=== PATIENT | male | born 1980 | race Caucasian/White ===

== ENCOUNTER 2017-11-20 14:37 | Emergency (ER) | payer SELFPAY ==
[2017-11-20] MEDS ORDERED: Lidocaine 1% w/Epinephrine 1:100K 20 ML VIAL ONE ×2 (15:22→16:09)
[2017-11-20] MEDS ORDERED: Bacitracin Zinc 1 Packet ONE (18:16)
== END 2017-11-20 18:39 | disposition home or self-care (01) ==
LOC: ERS 14:37
DX: S01.81XA Laceration without foreign body of other part of head, initial encounter (principal); S01.311A Laceration without foreign body of right ear, initial encounter; F17.210 Nicotine dependence, cigarettes, uncomplicated; W01.198A Fall on same level from slipping, tripping and stumbling with subsequent striking against other object, initial encounter
CPT/HCPCS: 12011; 12055; J2001

== ENCOUNTER 2017-11-27 14:01 | Emergency (ER) | payer SELFPAY ==
[2017-11-27] MEDS ORDERED: Bacitracin Zinc 1 Packet ONE (15:34)
== END 2017-11-27 15:40 | disposition home or self-care (01) ==
LOC: ERS 14:01
DX: S01.81XD Laceration without foreign body of other part of head, subsequent encounter (principal); F17.210 Nicotine dependence, cigarettes, uncomplicated; X58.XXXD Exposure to other specified factors, subsequent encounter

== ENCOUNTER 2018-01-29 16:19 | Inpatient (IN) | payer SELFPAY ==
[2018-01-29] MEDS ORDERED: levETIRAcetam In NaCl (Iso-Os) 1,000 MG in Premix Bag 1 BAG IVPB SCH (17:00)
[2018-01-29 20:02] VITALS: BMI 19.5
[2018-01-29] MEDS ORDERED: Ondansetron ODT 4 MG TAB PO PRN (21:45)
[2018-01-29] MEDS ORDERED: Mag-Al 1200 mg/1200 mg/30 ML UDCUP PO PRN (21:45)
[2018-01-29] MEDS ORDERED: Ondansetron HCl/PF 4 MG/2 ML Vial IVP PRN (21:45)
[2018-01-29] MEDS ORDERED: Calcium Carbonate 500 MG ChewTAB PO PRN (21:45)
--- NOTE | 2018-01-29 22:08 | HP ---
PRIMARY CARE PHYSICIAN: None. CHIEF COMPLAINT: Seizures. HISTORY OF PRESENT ILLNESS: Patient is a 37-year-old male with a spinal tumor diagnosed in the emergency room setting 2 years ago, presented to the emergency room with above complaints. Over the last 2 months, patient has several episodes of seizures which are short lasting. He loses his consciousness and becomes stiff. At times, he bites his tongue. He never had incontinence. He then has confusion after the episodes. The duration of each episode is variable. He did not seek any medical attention. This morning, he had several episodes of seizures for which EMS was called. He also has difficulty with ambulation per patient report. Two years ago, he was seen in the emergency room and had imaging of his spine. He was told that he has some spinal tumor. He never followed with anyone regarding this. He denies any headache, double vision, blurring of vision, facial asymmetry, weakness, numbness of any of his extremities. He received 1000 mg of Dilantin, 2 mg Ativan with IV fluids at [facility] and was transferred to this facility. He received 1000 mg of Keppra here. PAST MEDICAL HISTORY: Questionable spinal tumor diagnosed 2 years ago on the imaging done in the emergency room. PAST SURGICAL HISTORY: Left knee surgery for patellar fracture when he was 21. ALLERGIES: No known drug allergies. CURRENT HOME MEDICATIONS: Reviewed with the patient and none. SOCIAL HISTORY: Smokes up to 1 pack a day on daily basis. No alcohol use. He abuses cannabis. FAMILY HISTORY: Cancer runs in his family. He is unable to provide details. REVIEW OF SYSTEMS: The following complete review of systems was negative, unless otherwise mentioned in the HPI or below: Constitutional: Weight loss or gain, ability to conduct usual activities. Skin: Rash, itching. Eyes: Double vision, pain. ENT/Mouth: Nose bleeding, neck stiffness, pain, tenderness. Cardiovascular: Palpitations, dyspnea on exertion, orthopnea. Respiratory: Shortness of breath, wheezing, cough, hemoptysis, fever or night sweats. Gastrointestinal: Poor appetite, abdominal pain, heartburn, nausea, vomiting, constipation, or diarrhea. Genitourinary: Urgency, frequency, dysuria, nocturia. Musculoskeletal: Pain, swelling. Neurologic/Psychiatric: Anxiety, depression. Allergy/Immunologic: Skin rash, bleeding tendency. PHYSICAL EXAMINATION: VITAL SIGNS: Temperature 97.5, respirations 20, pulse rate of 68, blood pressure 120/80, O2 saturation 95% on room air. GENERAL: A 37-year-old male in no apparent distress. HEENT: Head is atraumatic, normocephalic, Sclerae are anicteric. Moist mucous membrane, no oral lesion. NECK: Supple, no JVD, no carotid bruit. LUNGS: Clear to auscultation bilaterally, no wheezing, rales or rhonchi. HEART: S1, S2 present. Regular rate and rhythm. No murmur, rubs, or gallops appreciated. ABDOMEN: Soft, nontender, bowel sounds present. EXTREMITIES: No edema or calf tenderness. NEUROLOGIC: Grossly nonfocal, moves all four extremities. Cranial nerves 2-12 were normal on exam. Power was 5/5 in all the extremities. PSYCHIATRY: Alert, awake, oriented x3. SKIN: Warm and dry. LYMPH NODES: No palpable lymph nodes in the neck. PERIPHERAL VASCULAR: Radial pulses palpable bilaterally. MUSCULOSKELETAL: No joint swelling or tenderness. LABORATORY DATA AND IMAGING DATA: 1. Urine drug screen positive for cannabinoid and barbiturates. Urinalysis was negative. BMP was normal range. Sodium 142, potassium 3.5. 2. CBC showed WBC 8.5 with hemoglobin 12.6, hematocrit 36.9 and platelet [address] 3. CT scan of the brain by my review was negative for acute findings. IMPRESSION: 1. Recurrent seizures of 2 months' duration. 2. Questionable spinal tumor. 3. Cannabis abuse. 4. Tobacco dependence. 5. Mild normochromic normocytic anemia. PLAN: The patient will be monitored in the stroke unit. Neurology will be consulted. We will continue Keppra. We will check Dilantin level in a.m. Start oral Dilantin. Walking program will be consulted. Seizure precautions. IV fluids. He was advised to follow up with PCP for further work up on ?spinal tumor. Plan of care was discussed with the patient and the family at the bedside. They stated understanding. Tobacco and cannabis cessation was emphasized. MTDD
[2018-01-29] MEDS: Sodium Chloride 0.9% 1,000 ML IV SCH (23:24)
[2018-01-30] MEDS ORDERED: Sodium Chloride 0.9% 500 ML IVPB SCH (00:30)
[2018-01-30] MEDS ORDERED: Sodium Chloride 0.9% 250 ML 250 ML IVPB SCH (02:00)
[2018-01-30] MEDS: Sodium Chloride 0.9% 1,000 ML IV SCH ×2 (05:45→13:29)
[2018-01-30] MEDS: Senokot 8.6 MG TAB PO PRN ×2 (09:43→22:20)
--- NOTE | 2018-01-30 11:14 | PDOC.PN ---
- Subjective Encounter Start Date: 01/30/18 Encounter Start Time: 08:00 Patient seen and examined for seizure. No new seizure. No new focal deficits. No overnight events - Objective Resuscitation Status: Resuscitation Status FULL:Full Resuscitation MAR Reviewed: Yes Vital Signs & Weight: Vital Signs (12 hours) Temp Pulse Resp BP Pulse Ox 01/30/18 08:00 98.1 F 62 16 97 01/30/18 07:49 98.1 F 62 16 88/53 L 97 01/30/18 04:00 98.4 F 54 L 16 80/36 L 98 01/30/18 01:25 84/47 L 01/30/18 00:00 98.5 F 51 L 16 75/38 L 100 Weight Weight 136 lb 8 oz I&O: 01/29/18 01/30/18 01/31/18 06:59 06:59 06:59 Intake Total 1304 480 Balance 1304 480 Phys Exam - Physical Examination Constitutional: NAD Respiratory: no wheezing, no rhonchi Cardiovascular: RRR, no rub Gastrointestinal: soft, non-tender, positive bowel sounds Musculoskeletal: no edema Neurological: moves all 4 limbs Dx/Plan - Plan DVT proph w/SCDs IMPRESSION: 1. Recurrent seizures. 2. ?spinal tumor. 3. Cannabis abuse. 4. Tobacco dependence. 5. Anemia. PLAN: Cont Dilantin 100 mg PO TID Cont IV Keppra Await Neuro input Seizure precautions Cont to monitor Ativan PRN for seizure. Review of Systems - Review of Systems Respiratory: negative: Cough, Dry, Shortness of Breath, Hemoptysis, SOB with Excertion, Pleuritic Pain, Sputum, Wheezing Cardiovascular: negative: chest pain, palpitations, orthopnea, paroxysmal nocturnal dyspnea, edema, light headedness, other - Medications/Allergies Allergies/Adverse Reactions: Allergies Allergy/AdvReac Type Severity Reaction Status Date / Time No Known Allergies Allergy Verified 01/30/18 00:57 Medications: Current Medications Acetaminophen (Tylenol) 650 mg PO Q4H PRN PRN Reason: Headache/Fever or Pain Al Hydroxide/Mg Hydroxide (Maalox) 30 ml PO Q6H PRN PRN Reason: Heartburn or Indigestion Calcium Carbonate (Tums) 1,000 mg PO Q4H PRN PRN Reason: Heartburn or Indigestion Levetiracetam 500 mg/ Device 100 mls @ 200 mls/hr IVPB BID [facility] Last Admin: 01/30/18 09:32 Dose: 100 mls Sodium Chloride (Normal Saline 0.9%) 1,000 mls @ 150 mls/hr IV .Q6H40M [facility] Last Admin: 01/30/18 05:45 Dose: 1,000 mls Ondansetron HCl (Zofran Odt) 4 mg PO Q6H PRN PRN Reason: Nausea/Vomiting Ondansetron HCl (Zofran) 4 mg IVP Q6H PRN PRN Reason: Nausea/Vomiting Phenytoin Sodium (Dilantin Er) 100 mg PO TID [facility] Last Admin: 01/30/18 09:33 Dose: 100 mg Senna (Senokot) 2 tab PO HSPRN PRN PRN Reason: Constipation Last Admin: 01/30/18 09:43 Dose: 2 tab Sodium Chloride (Flush - Normal Saline) 10 ml IVF Q12HR [facility] Last Admin: 01/30/18 09:33 Dose: Not Given Sodium Chloride (Flush - Normal Saline) 10 ml IVF PRN PRN PRN Reason: Saline Flush
[2018-01-30] MEDS: Lorazepam 2 MG/ML VIAL SLOW IVP PRN (13:30)
[2018-01-30] MEDS: Acetaminophen 325 MG TAB PO PRN (17:05)
[2018-01-30] MEDS: levETIRAcetam 500 MG TAB PO SCH (21:51)
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
[2018-01-31] MEDS ORDERED: Sodium Chloride 0.9% 250 ML 250 ML IVPB SCH (02:00)
[2018-01-31] MEDS: Acetaminophen 325 MG TAB PO PRN ×2 (09:51→16:51)
[2018-01-31] MEDS: levETIRAcetam 500 MG TAB PO SCH (09:51)
[2018-01-31] MEDS: Lorazepam 2 MG/ML VIAL SLOW IVP PRN (11:28)
[2018-01-31] MEDS ORDERED: levETIRAcetam 500 MG TAB PO SCH ×2 (12:00→21:00)
--- NOTE | 2018-01-31 14:35 | CON ---
DATE OF CONSULTATION: 01/31/2018 HISTORY OF PRESENT ILLNESS: The patient is a 37-year-old gentleman, who was admitted with altered mental status, thought to be secondary to seizures. He was noted to have a slow heart rate. The patient is unable to give any coherent history. According to his family, he has a history of seizure disorder. The patient was admitted with possible seizures. He has been on IV medication and he was noted to develop a slow heart rate. The patient has no known history of syncope. PAST MEDICAL HISTORY: Seizure disorder, possible spinal tumor. PAST SURGICAL HISTORY: He has had knee surgery. ALLERGIES: None. SOCIAL HISTORY: The patient has a long history of tobacco abuse. MEDICATIONS: None. PHYSICAL EXAMINATION: GENERAL: This is a thin, underweight gentleman, who is sedated. VITAL SIGNS: With a blood pressure of 90/50. NECK: Showed no jugular venous distention. LUNGS: Clear to auscultation. HEART: Regular rate and rhythm, normal S1 and S2. ABDOMEN: Nondistended. EXTREMITIES: Showed no edema. LABORATORY RESULTS: Revealed him to have a white blood cell count 8.5, hemoglobin 12.6, hematocrit 36.9, platelets of 257. Sodium is 142, potassium 3.5, chloride 105, bicarbonate 28, BUN 8, creatinine is 0.7. EKG is pending. His pot reliner revealed sinus bradycardia. IMPRESSION: 1. Sinus bradycardia, asymptomatic. 2. Seizure disorder. 3. Tobacco abuse. 4. Malnutrition. This gentleman presents with a possible seizure disorder. He has been receiving Dilantin, which may be the cause of his bradycardia. There is no evidence of conduction disease on the telemetry monitoring. We will obtain a 12 -lead EKG. We will check the patient's echocardiogram. We will follow this patient with you through his hospitalization. [facility]SS[facility]
--- NOTE | 2018-01-31 17:38 | PDOC.PN ---
- Subjective Encounter Start Date: 01/31/18 Encounter Start Time: 07:00 Patient seen and examined for seizures. Had 3 seizure episodes last night. No new focal deficits. No overnight events - Objective Resuscitation Status: Resuscitation Status FULL:Full Resuscitation MAR Reviewed: Yes Vital Signs & Weight: Vital Signs (12 hours) Temp Pulse Resp BP Pulse Ox 01/31/18 16:00 97.9 F 73 16 106/59 L 99 01/31/18 11:46 98.2 F 60 16 102/64 95 01/31/18 08:00 98.2 F 60 16 99 01/31/18 07:52 98.3 F 52 L 14 90/51 L 99 Weight Weight 136 lb 8 oz I&O: 01/30/18 01/31/18 02/01/18 06:59 06:59 06:59 Intake Total 1304 2585 360 Output Total 1350 600 Balance 1304 1235 -240 Phys Exam - Physical Examination Constitutional: NAD Respiratory: no wheezing, no rhonchi Cardiovascular: RRR, no rub Gastrointestinal: soft, non-tender, positive bowel sounds Musculoskeletal: no edema Neurological: moves all 4 limbs Dx/Plan - Plan DVT proph w/SCDs IMPRESSION: 1. Recurrent seizures on Keppra 2. ?spinal tumor. 3. Cannabis abuse. 4. Tobacco dependence. 5. Anemia. 6. Sinus Bradycardia - prob due to Dilantin PLAN: Dilantin dced Cont Keppra Await Imaging and EEG Seizure precautions Cont to monitor Ativan PRN for seizure. Review of Systems - Review of Systems Constitutional: negative: fever, chills, sweats, weakness, malaise, other Respiratory: negative: Cough, Dry, Shortness of Breath, Hemoptysis, SOB with Excertion, Pleuritic Pain, Sputum, Wheezing Cardiovascular: negative: chest pain, palpitations, orthopnea, paroxysmal nocturnal dyspnea, edema, light headedness, other Neurological: Seizures. negative: Weakness, Numbness, Incoordination, Change in Speech, Confusion, Other - Medications/Allergies Allergies/Adverse Reactions: Allergies Allergy/AdvReac Type Severity Reaction Status Date / Time No Known Allergies Allergy Verified 01/30/18 00:57 Medications: Current Medications Acetaminophen (Tylenol) 650 mg PO Q4H PRN PRN Reason: Headache/Fever or Pain Last Admin: 01/31/18 16:51 Dose: 650 mg Al Hydroxide/Mg Hydroxide (Maalox) 30 ml PO Q6H PRN PRN Reason: Heartburn or Indigestion Calcium Carbonate (Tums) 1,000 mg PO Q4H PRN PRN Reason: Heartburn or Indigestion Levetiracetam (Keppra) 1,000 mg PO BID [facility] Lorazepam (Ativan) 1 mg SLOW IVP Q15MIN PRN PRN Reason: Seizures Last Admin: 01/31/18 11:28 Dose: 1 mg Ondansetron HCl (Zofran Odt) 4 mg PO Q6H PRN PRN Reason: Nausea/Vomiting Ondansetron HCl (Zofran) 4 mg IVP Q6H PRN PRN Reason: Nausea/Vomiting Senna (Senokot) 2 tab PO HSPRN PRN PRN Reason: Constipation Last Admin: 01/30/18 22:20 Dose: 2 tab Sodium Chloride (Flush - Normal Saline) 10 ml IVF Q12HR [facility] Last Admin: 01/31/18 09:51 Dose: 10 ml Sodium Chloride (Flush - Normal Saline) 10 ml IVF PRN PRN PRN Reason: Saline Flush Last Admin: 01/31/18 11:29 Dose: 10 ml
--- NOTE | 2018-01-31 17:43 | MRI ---
MRI LUMBAR SPINE WITH AND WITHOUT GADOLINIUM CONTRAST: HISTORY: Seizure. Gait abnormality. FINDINGS: The conus medullaris has a normal appearance. Vertebral body height and alignment are maintained. D isk hydration is within normal limits. Central canal and neural foramina are patent. No abnormal ar eas of contrast enhancement are apparent. IMPRESSION: Normal magnetic resonance imaging appearance of the lumbar spine. POS: [facility]
--- NOTE | 2018-01-31 17:46 | MRI ---
BRAIN MRI WITH AND WITHOUT CONTRAST: 01/31/2018 HISTORY: Recurrent seizures. COMPARISON: None. TECHNIQUE: Multiplanar, multisequence MR imaging of the brain is obtained with and without contrast using a seiz ure protocol. FINDINGS: The diffusion weighted imaging demonstrates no evidence for acute infarction. There is mild mucosal thickening involving the frontal sinuses and ethmoid air cells bilaterally. Th e arterial flow voids, at the axial level of the skull base, appear grossly unremarkable on the T2 we ighted imaging. The regional bone marrow signal intensity appears within normal limits. There is no midline shift, mass effect, or ventricular enlargement. The orbits/globes demonstrate normal symmetric signal intensity. The coronal thin-section, T1 weight ed imaging and the coronal gradient echo imaging is limited by motion artifact and demonstrates no di screte abnormality in the region of the hippocampi. The coronal gradient echo imaging demonstrates n o evidence for intracranial hemorrhage. Post contrast imaging is limited by motion and demonstrates no abnormal enhancement. IMPRESSION: Grossly unremarkable contrast enhanced brain MRI using seizure protocol. POS: [facility]
--- NOTE | 2018-01-31 18:20 | MRI ---
MRI CERVICAL SPINE WITH AND WITHOUT CONTRAST: 01/31/2018 HISTORY: Gait abnormality. Possible spinal mass. COMPARISON: None. TECHNIQUE: Multiplanar, multisequence MR imaging of the cervical spine provided with and without contrast. FINDINGS: Sagittal STIR imaging demonstrates no focal area of osseous marrow edema. Mild degenerative change n oted at the atlantoaxial interspace. The craniocervical junction is intact. Cervical vertebral body height and alignment appear normal. No prevertebral soft tissue abnormality. C2-C3: No central canal or neural foraminal stenosis. C3-C4: No central canal or neural foraminal stenosis. C4-C5: No central canal or neural foraminal stenosis. C5-C6: No central canal or neural foraminal stenosis. C6-C7: No central canal or neural foraminal stenosis. C7-T1: No central canal or neural foraminal stenosis. The post contrast imaging is significantly limited on the basis of patient motion artifact. There is no abnormal enhancement involving the contents of the thecal sac, the imaged osseous structures, or the intervertebral disks. T2 imaging demonstrates no abnormal signal intensity within the cervical c ord. IMPRESSION: Grossly unremarkable contrast enhanced cervical spine magnetic resonance imaging. POS: [facility]
--- NOTE | 2018-01-31 18:24 | MRI ---
MRI THORACIC SPINE NONCONTRAST: HISTORY: Gait abnormality. Seizure. FINDINGS: The spinal cord throughout the thoracic levels has a normal appearance without evidence of compressio n, expansion, or abnormal signal. No abnormal areas of contrast enhancement are apparent. Vertebral body heights and alignment are maintained. Bone marrow signal is within normal limits. Minimal disk bulges are present at the C5-C6 and C6-C7 levels without significant compromise of the c entral canal. Very mild osteophytosis. IMPRESSION: Minimal degenerative changes of the thoracic spine. No acute abnormalities are demonstrated. POS: [facility]
--- NOTE | 2018-01-31 22:38 | EKG ---
Test Reason : Blood Pressure : / mmHG Vent. Rate : 062 BPM Atrial Rate : 062 BPM P-R Int : 104 ms QRS Dur : 078 ms QT Int : 390 ms P-R-T Axes : 024 079 044 degrees QTc Int : 395 ms Sinus rhythm with short UT Otherwise normal ECG No previous ECGs available Confirmed by Dany POTTER ([id number]) on 01/31/2018 10:38:11 PM Referred By: BRENDON Confirmed By:Dany POTTER
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
[2018-02-01 08:30] VITALS: TEMP 97.3
[2018-02-01] MEDS: Senokot 8.6 MG TAB PO PRN (09:03)
[2018-02-01 09:06] VITALS: BP 95/47
--- NOTE | 2018-02-01 14:06 | DIS ---
DISCHARGE DISPOSITION: Home. FOLLOWUP: 1. Follow up with primary care physician at [facility] in 1 week. 2. Follow up with Dr. Carmina Burt in 2 weeks. No driving or operating heavy machinery or climbing ladders until cleared by M.D. DISCHARGE MEDICATIONS: None. INPATIENT CONSULTANTS: Neurology, Dr. Carmina Burt. The patient was seen on the day of discharge. Denies any new complaints, no chest pain, shortness of breath or palpitations. BRIEF HOSPITAL COURSE: The patient is a 37-year-old male with questionable spinal tumor, presented to the emergency room with seizures. Please refer to the history and physical dated 01/29/2018 for further details. The patient was admitted to the stroke unit with a diagnosis of seizure. The patient has been having seizures on and off for the last 2 months. The patient was started on Dilantin with Keppra. He was seen by Neurology, Dr. Carmina Burt. MRI of the brain was negative. Due to history of spinal tumor, he had an MRI of his spine, which was essentially negative. Despite Dilantin and Keppra, he had few more episodes of seizure. His EEG was normal. Dr. Carmina Burt has discontinued antiepileptics. 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 He was advised to follow up with primary care and Dr. Burt as outpatient. He was also evaluated by Dr Law for bradycardia while on Dilantin. Bradycardia resolved after discontinuation of Dilantin. Plan of care was discussed with the patient in detail. He stated understanding. FINAL DIAGNOSES: 1. Recurrent seizures. Workup negative. Probably pseudoseizures per Neurology. 2. Tobacco dependence. 3. Cannabis abuse. 4. Mild anemia. Plan of care was discussed with the patient and the family in detail. They stated understanding. MTDD
--- NOTE | 2018-02-01 14:30 | EEG ---
Referring Physician: DR. DANYELLE GONZALEZ EEG # [id number] TEST TYPE: ROUTINE PORTABLE INPATIENT DATE OF EEG BEING DONE: 01/31/18 REASON FOR EEG: RECURRENT SEIZURE-LIKE SPELLS EEG DESCRIPTION: This is a 21 channel digital EEG recording. Electrodes are placed using the international 10-20 electrode placement system. The background rhythm is predominately 8-9 hertz, medium amplitude alpha rhythm. There are periods of drowsiness with 6-7 hertz, low to medium voltage theta rhythm. HYPERVENTILATION: Showed no effect. PHOTIC STIMULATION: Showed no effect. There are no epileptiform discharges, sharp transients or asymmetry noted. EKG LEAD: Shows 60 beats per minute, regular rhythm. IMPRESSION: THIS IS A NORMAL AWAKE AND DROWSY EEG. [employer] Solution Architect: BUTCH Svp Monetization: EEG.MSTony LOWRY
== END 2018-02-01 10:43 | disposition home or self-care (01) | DRG 101 ==
LOC: ERS 16:19 → 2SE 19:03
PROVIDERS: ADMIT Internal Medicine; ATTEND Internal Medicine
DX: R56.9 Unspecified convulsions (principal); E46 Unspecified protein-calorie malnutrition; Z68.1 Body mass index [BMI] 19.9 or less, adult; D49.2 Neoplasm of unspecified behavior of bone, soft tissue, and skin; F17.210 Nicotine dependence, cigarettes, uncomplicated; F12.10 Cannabis abuse, uncomplicated; F32.9 Major depressive disorder, single episode, unspecified; F41.9 Anxiety disorder, unspecified; D64.9 Anemia, unspecified; R00.1 Bradycardia, unspecified
CPT/HCPCS: 70553; 72156; 72157; 72158; 93005; 93010; 93306; 95816; 95819; 96365; A4216; J1953; J2060